=== PATIENT | female | born 1970 | race Caucasian/White ===

== ENCOUNTER 2016-09-02 05:53 | Day surgery (SDC) | payer OTHER ==
--- NOTE | 2016-08-27 10:58 | HISTORY AND PHYSICAL E ---
History and Physical NAME: YOUNG LEDESMA : 1970 AGE: 45Y ADMITTED: 09/02/2016 ROOM: The patient presented regarding colonoscopy. She is to be done in the OR. The patient presented for colonoscopy. Primary doctor is Dr. Plasencia. She is to be done in the OR with anesthesia standby. CHIEF COMPLAINT: Diverticulosis, abdominal pain. SOCIAL HISTORY: Smokes a pack a day, drinks rarely. PAST SURGICAL HISTORY: Tubal ligation. REVIEW OF SYSTEMS: CARDIAC: Hypertension, high cholesterol. ENDOCRINE: Negative. GASTROINTESTINAL: Diverticulitis, diverticulosis, lower abdominal pain, diarrhea. HEMATOLOGY/ONCOLOGY: Negative NEUROLOGIC AND PSYCH: Stress. FAMILY HISTORY: Father had cardiac disease. Mom has breast cancer. PHYSICAL EXAMINATION: GENERAL: A pleasant female in no acute distress, 46. VITAL SIGNS: Blood pressure 140/90, pulse 80, respirations 18, temperature is 98. HEAD, EYES, EARS, NOSE AND THROAT: Normal. NECK: Neck is supple. LUNGS: Clear. ABDOMEN: Soft. NEUROLOGIC: Exam negative. CONCLUSIONS: Colon screening. MEDICATIONS: 1. Trazodone. 2. Lovaza. 3. Lipitor. 4. valsartan. CONCLUSIONS: 1. Diverticulosis. 2. Diarrhea. 3. Abdominal pain. PLAN: Colonoscopy to be done in the OR. Admit 09/02/2016. DICTATING PHYSICIAN: COLTON JACINTO M.D. [id number] PHY#: [id number] ID: [id number] JOB#: [id number] ACCT: [id number] cc:COLTON JACINTO M.D., SWETANG M.D. >
[~2016-09-02 05:53] MED LIST: LACTATED RINGERS 1000 ML IV PRN; LIDOCAINE 0.5% INJ-PF (5 MG/ML) 50 ML SDV SUBCUT PRN
[2016-09-02] MEDS ORDERED: KETAMINE HCL INJ 500 MG/10 ML VIAL ONE (07:19)
[2016-09-02] MEDS ORDERED: MIDAZOLAM 2 MG/2 ML INJ ONE (07:19)
[2016-09-02] MEDS ORDERED: PROPOFOL INJ 200 MG/20 ML VIAL IV ONE (07:19)
[2016-09-02] MEDS ORDERED: GLUCAGON,HUMAN RECOMB 1 MG INJ ONE (08:04)
[2016-09-02] MEDS ORDERED: MORPHINE SULFATE 10 MG/ML INJ IV PRN (08:22)
[2016-09-02] MEDS ORDERED: OXYCODONE-ACETAMINOPHEN 5-325 MG TABLET PO PRN ×2 (08:22)
[2016-09-02] MEDS ORDERED: FENTANYL CITRATE INJ/PF 100 MCG/2 ML AMPUL IV PRN ×3 (08:22)
[2016-09-02] MEDS ORDERED: MEPERIDINE HCL/PF INJ 25 MG/1 ML DISP.SYRIN IV PRN (08:22)
[2016-09-02] MEDS ORDERED: PROMETHAZINE HCL INJ 25 MG/1 ML VIAL IV PRN ×3 (08:22→09:23)
[2016-09-02] MEDS ORDERED: DIPHENHYDRAMINE HCL 50 MG/ML VIAL IV PRN (08:22)
[2016-09-02] MEDS ORDERED: LIDOCAINE 2% VISCOUS SOLN 20 ML UDCUP PO PRN (09:01)
[2016-09-02] MEDS ORDERED: ACETAMINOPHEN 325 MG TABLET PO PRN (09:02)
[2016-09-02] MEDS ORDERED: SIMETHICONE 80 MG TAB.CHEW PO PRN (09:15)
[2016-09-02 09:35] LABS: ABSOLUTE EOSINOPHILS # (AUTO) 0.2 10^3/uL (0.0-0.6); ABSOLUTE LYMPHOCYTES (AUTO) 1.9 10^3/uL (0.5-4.7); ABSOLUTE MONOCYTES (AUTO) 0.5 10^3/uL (0.1-1.4); ABSOLUTE NEUT (AUTO) 5.2 10^3/uL (1.7-8.2); BASOPHILS % (AUTO) 0.6 % (0-2); EOSINOPHILS % (AUTO) 2.3 % (0-6); HEMATOCRIT 39.2 % (36.0-47.0); HEMOGLOBIN 13.1 g/dL (12.0-15.5); HGB HCT DIFFERENCE 0.1; LYMPHOCYTES % (AUTO) 24.1 % (13-45); MEAN CORPUSCULAR HEMOGLOBIN 31.4 pg (27.0-33.4); MEAN CORPUSCULAR HGB CONC 33.4 g/dL (32.0-36.0); MEAN CORPUSCULAR VOLUME 94 fl (80-97); MONOCYTES % (AUTO) 6.9 % (3-13); RED BLOOD COUNT 4.17 10^6/uL (3.72-5.28); SEGMENTED NEUTROPHILS % (AUTO) 66.1 % (42-78); WHITE BLOOD COUNT 7.8 10^3/uL (4.0-10.5)
[2016-09-02 11:04] VITALS: BP 146/98
--- NOTE | 2016-09-03 11:38 | DISCHARGE SUMMARY E ---
Discharge Summary NAME: YOUNG LEDESMA : 1970 AGE: 45Y ADMITTED: 09/02/2016 DISCHARGED: 09/02/2016 HISTORY: Patient is 45. Underwent colon screening. She does have recent diverticulitis/diverticulosis. FINDINGS: Colonoscopy showed severe diverticulosis, sigmoid descending colon: No polyps. External hemorrhoids. FINAL DIAGNOSIS: 1. DIVERTICULOSIS. 2. EXTERNAL HEMORRHOIDS. DISCHARGE PLAN: 1. Baseline CBC, C-reactive protein. 2. Patient to be discharged. Soft low residual diet. 3. Awaiting lab. 4. Awaiting followup office visit, 1 week. DICTATING PHYSICIAN: COLTON JACINTO M.D. [id number] Y#: [id number] ID: [id number] JOB#: [id number] ACCT: [id number] cc:[facility] COLTON JACINTO M.D., SWETANG M.D. >
--- NOTE | 2016-09-03 11:50 | OPERATIVE REPORT E ---
Operative Report NAME: YOUNG LEDESMA : 1970 AGE: 45Y DATE OF SURGERY: 09/02/2016 ROOM: PREOPERATIVE DIAGNOSIS: DIVERTICULOSIS. POSTOPERATIVE DIAGNOSES: 1. DIVERTICULOSIS SIGMOID DESCENDING COLON. 2. EXTERNAL HEMORRHOIDS. 3. NO POLYPS SEEN. OPERATION: Colonoscopy. SURGEON: COLTON JACINTO M.D. ANESTHESIA: Done in the OR with anesthesia standby TISSUE REMOVED OR ALTERED: None. PROCEDURE: Rectal exam; external hemorrhoids. Rectosigmoid; normal. Sigmoid; diverticulosis. Descending colon; diverticulosis. Transverse colon; normal. Ascending colon; normal. Cecum; normal. Moderate amount of liquid stool in the cecum. Scope withdrawn from cecum, ascending, transverse, descending, sigmoid all the way to the rectum. CONCLUSIONS: 1. Sigmoid descending colon diverticulosis. 2. External hemorrhoids. 3. No polyps. PLAN: Soft low-residue diet 3 days. Consider followup colonoscopy after 5 years. DICTATING PHYSICIAN: COLTON JACINTO M.D. [id number] PHY#: [id number] ID: [id number] JOB#: [id number] ACCT: [id number] cc:COLTON JACINTO M.D., SWETANG M.D. >
== END 2016-09-02 10:20 | disposition home or self-care (01) ==
LOC: OROUT 05:53
PROVIDERS: ATTEND Specialist
PROC: 0DJ08ZZ Inspection of Upper Intestinal Tract, Via Natural or Artificial Opening Endoscopic (ICD-10-PCS; principal; 2016-09-02 08:00)
DX: K57.30 Diverticulosis of large intestine without perforation or abscess without bleeding (principal); K64.4 Residual hemorrhoidal skin tags; I10 Essential (primary) hypertension; E78.00 Pure hypercholesterolemia, unspecified; F17.210 Nicotine dependence, cigarettes, uncomplicated; Z79.899 Other long term (current) drug therapy; Z88.5 Allergy status to narcotic agent; Z87.898 Personal history of other specified conditions
CPT/HCPCS: 45378; 36415; 85025; 81025; 86140; J2250; J1610; J3490; J2704; 810

== ENCOUNTER → 2016-09-22 | Outpatient (CLI) | payer OTHER | LOC: RAD 07:50 | PROVIDERS: ATTEND Physician Assistant | DX: R94.5 Abnormal results of liver function studies (principal) | CPT/HCPCS: 76705; 93976 ==

== ENCOUNTER → 2017-01-20 | Outpatient (CLI) | payer OTHER ==
--- NOTE | 2017-01-20 09:43 | RADIOLOGY REPORT (SQ) ---
EXAM DESCRIPTION: CT CHEST WITHOUT COMPLETED DATE/TIME: 01/20/2017 8:38 am REASON FOR STUDY: CHEST PAIN R07.9 CHEST PAIN, UNSPECIFIED COMPARISON: CT chest 10/24/2015 TECHNIQUE: CT scan performed of the chest without intravenous contrast. Images reviewed with lung, soft tissue and bone windows. Reconstructed coronal and sagittal MPR images reviewed. All images st ored on PACS. All CT scanners at this facility use dose modulation, iterative reconstruction, and/or weight based d osing when appropriate to reduce radiation dose to as low as reasonably achievable (ALARA). [facility]: Dose Right [facility]: CareDose [facility]: Dose Right [facility]: Teradose 4D [facility]: IPWireless RADIATION DOSE: Up-to-date CT equipment and radiation dose reduction techniques were employed. CTDIv ol: 7.4 mGy. DLP: 276 mGy-cm. mGy. LIMITATIONS: No technical limitations. FINDINGS: LUNGS AND PLEURA: No masses, infiltrates, pneumothorax. No pleural effusions, calcificati ons. HILAR AND MEDIASTINAL STRUCTURES: No identified masses or abnormal nodes. No obvious aneurysm. HEART AND VASCULAR STRUCTURES: No aneurysm. No pericardial effusion. UPPER ABDOMEN: No significant findings. Limited exam. THYROID AND OTHER SOFT TISSUES: No masses. No adenopathy. BONES: Benign bone islands in the T3, T8, T10, and T12 levels HARDWARE: None in the chest. OTHER: No other significant findings. IMPRESSION: NO SIGNIFICANT FINDING ON NON-CONTRASTED CHEST CT. TECHNICAL DOCUMENTATION: JOB ID: [id number] Quality ID # [id number]: Final reports with documentation of one or more dose reduction techniques (e.g., Au tomated exposure control, adjustment of the mA and/or kV according to patient size, use of iterative reconstruction technique) [address]- All Rights Reserved
== END ==
LOC: RAD 08:22
PROVIDERS: ATTEND Physician Assistant
DX: R07.9 Chest pain, unspecified (principal)
CPT/HCPCS: 71250

== ENCOUNTER 2019-05-22 11:58 | Observation (INO) | payer OTHER ==
[2019-05-22] MEDS ORDERED: ASPIRIN 81 MG TABLET, CHEWABLE PO ONE (13:00)
--- NOTE | 2019-05-22 13:04 | ER Document Report ---
ED Medical Screen (RME) - General Chief Complaint: Breathing Difficulty Stated Complaint: BREATHING DIFFICULTY Time Seen by Provider: 05/22/19 12:56 Primary Care Provider: ADRIA DUNN PA [Primary Care Provider] - Follow up as needed Mode of Arrival: Ambulatory Information source: Patient Notes: 48-year-old female presents to ED for complaint of severe chest burning started on just the right side and now it is bilateral. Her blood pressure is 218/104. She states she is so short of breath she cannot do anything. She states it started Wednesday after she did a kwaku event on Wednesday. She states she normally smokes a pack a day but has not been able to smoke due to the shortness of breath. Patient is alert and oriented respirations are regular. After patient gave a good cough lungs were clear. I have greeted and performed a rapid initial assessment of this patient. A comprehensive ED assessment and evaluation of the patient, analysis of test results and completion of medical decision making process will be conducted by an additional ED providers. TRAVEL OUTSIDE OF THE [place] IN LAST 30 DAYS: No - Related Data Allergies/Adverse Reactions: codeine Allergy (Severe, Verified 08/31/16 10:18) Hives ivp dye Allergy (Severe, Uncoded 08/31/16 10:18) redness, sob Past Medical History - Past Medical History Cardiac Medical History: Reports: Hx Coronary Artery Disease, Hx Hypertension - on meds Denies: Hx Heart Attack Pulmonary Medical History: Denies: Hx Asthma, Hx Bronchitis, Hx COPD, Hx Pneumonia Neurological Medical History: Denies: Hx Cerebrovascular Accident, Hx Seizures Musculoskeltal Medical History: Denies Hx Arthritis - Immunizations Hx Diphtheria, Pertussis, Tetanus Vaccination: Yes Physical Exam - Vital signs Vitals: Temp Pulse Resp BP Pulse Ox 98.1 F 71 18 214/106 H 96 05/22/19 12:45 05/22/19 12:45 05/22/19 12:45 05/22/19 12:45 05/22/19 12:45 Course - Vital Signs Vital signs: Temp Pulse Resp BP Pulse Ox 98.1 F 71 18 214/106 H 96 05/22/19 12:45 05/22/19 12:45 05/22/19 12:45 05/22/19 12:45 05/22/19 12:45 Doctor's Discharge - Discharge Referrals: ADRIA DUNN PA [Primary Care Provider] - Follow up as needed
[2019-05-22 14:07] LABS: ABSOLUTE BASOPHILS # (AUTO) 0.1 10^3/uL (0.0-0.2); ABSOLUTE EOSINOPHILS # (AUTO) 0.2 10^3/uL (0.0-0.6); ABSOLUTE LYMPHOCYTES (AUTO) 3.1 10^3/uL (0.5-4.7); ABSOLUTE MONOCYTES (AUTO) 0.7 10^3/uL (0.1-1.4); ABSOLUTE NEUT (AUTO) 5.4 10^3/uL (1.7-8.2); BASOPHILS % (AUTO) 1.2 % (0-2); EOSINOPHILS % (AUTO) 2.1 % (0-6); HEMATOCRIT 42.6 % (36.0-47.0); HEMOGLOBIN 14.8 g/dL (12.0-15.5); LYMPHOCYTES % (AUTO) 32.6 % (13-45); MEAN CORPUSCULAR HEMOGLOBIN 33.3 pg (27.0-33.4); MEAN CORPUSCULAR HGB CONC 34.8 g/dL (32.0-36.0); MEAN CORPUSCULAR VOLUME 96 fl (80-97); MONOCYTES % (AUTO) 7.3 % (3-13); PLATELET COUNT 194 10^3/uL (150-450); RED BLOOD COUNT 4.45 10^6/uL (3.72-5.28); RED CELL DISTRIBUTION WIDTH 12.5 % (11.5-14.0); SEGMENTED NEUTROPHILS % (AUTO) 56.8 % (42-78); TOTAL CELLS COUNTED % (AUTO) 100 %; WHITE BLOOD COUNT 9.5 10^3/uL (4.0-10.5)
[2019-05-22 14:31] LABS: ALBUMIN 4.5 g/dL (3.5-5.0); ALKALINE PHOSPHATASE 134 U/L (38-126); ANION GAP 10 (5-19); ASPARTATE AMINO TRANSFERASE 102 U/L (14-36); BILIRUBIN,DIRECT 0.1 mg/dL (0.0-0.4); BILIRUBIN,TOTAL 1.1 mg/dL (0.2-1.3); BLOOD UREA NITROGEN 11 mg/dL (7-20); CALCIUM 10.1 mg/dL (8.4-10.2); CARBON DIOXIDE 27 mmol/L (22-30); CHLORIDE 102 mmol/L (98-107); GLUCOSE 117 mg/dL (75-110); POTASSIUM 4.6 mmol/L (3.6-5.0); TOTAL PROTEIN 7.9 g/dL (6.3-8.2)
--- NOTE | 2019-05-22 14:43 | RADIOLOGY REPORT (SQ) ---
EXAM DESCRIPTION: CHEST 2 VIEWS COMPLETED DATE/TIME: 05/22/2019 2:14 pm REASON FOR STUDY: Chest burning blood pressure 218/104 manually COMPARISON: 05/22/2015 EXAM PARAMETERS: NUMBER OF VIEWS: two views TECHNIQUE: Digital Frontal and Lateral radiographic views of the chest acquired. RADIATION DOSE: NA LIMITATIONS: none FINDINGS: LUNGS AND PLEURA: No opacities, masses or pneumothorax. No pleural effusion. MEDIASTINUM AND HILAR STRUCTURES: No masses or contour abnormalities. HEART AND VASCULAR STRUCTURES: Heart normal size. No evidence for failure. BONES: No acute findings. HARDWARE: None in the chest. OTHER: No other significant finding. IMPRESSION: NO ACUTE RADIOGRAPHIC FINDING IN THE CHEST. TECHNICAL DOCUMENTATION: JOB ID: [id number] [email or web address]- All Rights Reserved Reading location - IP/workstation name: [email or web address]
[2019-05-22] MEDS ORDERED: NITROGLYCERIN 0.4 MG/TAB 25 TAB/BOTTLE SL ONE (15:55)
[2019-05-22] MEDS ORDERED: IPRATROPIUM/ALBUTEROL 0.5-2.5 MG/3 ML AMPUL NEB PRN (16:10)
[2019-05-22] MEDS ORDERED: METHYLPREDNISOLONE INJ 125 MG/2 ML SDV IV ONE (16:11)
[2019-05-22] MEDS ORDERED: CLONIDINE HCL 0.1 MG TABLET PO ONE (16:11)
--- NOTE | 2019-05-22 18:35 | ER Document Report ---
ED Cardiac - General Chief Complaint: Chest Pain Stated Complaint: BREATHING DIFFICULTY Time Seen by Provider: 05/22/19 12:56 Primary Care Provider: ADRIA DUNN PA [PHYSICIAN FINANCIAL CONSULTANT] - Follow up as needed Mode of Arrival: Ambulatory TRAVEL OUTSIDE OF THE [place] IN LAST 30 DAYS: No - Related Data Allergies/Adverse Reactions: codeine Allergy (Severe, Verified 08/31/16 10:18) Hives ivp dye Allergy (Severe, Uncoded 08/31/16 10:18) redness, sob Home Medications: Metoprolol, Losartan, Xanax prn Past Medical History - General Information source: Patient - Social History Smoking Status: Current Every Day Smoker Patient has suicidal ideation: No Patient has homicidal ideation: No - Past Medical History Cardiac Medical History: Reports: Hx Coronary Artery Disease, Hx Hypertension - on meds Denies: Hx Heart Attack Pulmonary Medical History: Reports: Hx COPD Denies: Hx Asthma, Hx Bronchitis, Hx Pneumonia Neurological Medical History: Denies: Hx Cerebrovascular Accident, Hx Seizures Musculoskeletal Medical History: Denies Hx Arthritis - Immunizations Hx Diphtheria, Pertussis, Tetanus Vaccination: Yes Physical Exam - Vital signs Vitals: Temp Pulse Resp BP Pulse Ox 98.1 F 71 18 214/106 H 96 05/22/19 12:45 05/22/19 12:45 05/22/19 12:45 05/22/19 12:45 05/22/19 12:45 Course - Vital Signs Vital signs: Temp Pulse Resp BP Pulse Ox 97.6 F 71 19 162/75 H 94 05/22/19 18:21 05/22/19 12:45 05/22/19 18:01 05/22/19 18:01 05/22/19 18:01 - Laboratory Result Diagrams: 05/22/19 13:56 05/22/19 13:56 Laboratory results interpreted by me: 05/22/19 05/22/19 13:56 13:56 Glucose 117 H AST 102 H Alkaline Phosphatase 134 H NT-Pro-B Natriuret Pep 206 H Discharge - Discharge Clinical Impression: Hypertension, Shortness of breath, COPD (chronic obstructive pulmonary disease) Condition: Fair Disposition: ADMITTED INPATIENT Admitting Provider: Plasencia Unit Admitted: IMCU Referrals: ADRIA DUNN PA [PHYSICIAN FINANCIAL CONSULTANT] - Follow up as needed
--- NOTE | 2019-05-22 18:39 | EKG REPORT ---
SEVERITY:- NORMAL ECG - SINUS RHYTHM : Confirmed by: Silverio Correa MD 22-May-2019 18:37:48
[2019-05-22] MEDS ORDERED: OXYCODONE-ACETAMINOPHEN 5-325 MG TABLET PO PRN (18:46)
[2019-05-22] MEDS ORDERED: NORMAL SALINE 1000 ML 1,000 ML IV PRN (18:46)
[2019-05-22] MEDS ORDERED: ACETAMINOPHEN 325 MG TABLET PO PRN (18:46)
[2019-05-22] MEDS ORDERED: HYDRALAZINE HCL 25 MG TABLET PO PRN (18:52)
--- NOTE | 2019-05-22 19:07 | RADIOLOGY REPORT (SQ) ---
EXAM DESCRIPTION: CT CHEST WITHOUT COMPLETED DATE/TIME: 05/22/2019 6:46 pm REASON FOR STUDY: back and chest pain short of breath COMPARISON: CT of the chest without contrast from 01/20/2017 and PA and lateral views of the chest fro m 05/22/2019. TECHNIQUE: CT scan performed of the chest without intravenous contrast. Images reviewed with lung, soft tissue and bone windows. Reconstructed coronal and sagittal MPR images reviewed. All images st ored on PACS. All CT scanners at this facility use dose modulation, iterative reconstruction, and/or weight based d osing when appropriate to reduce radiation dose to as low as reasonably achievable (ALARA). [facility]: Dose Right [facility]: CareDose [facility]: Dose Right [facility]: Teradose 4D [facility]: [employer] RADIATION DOSE: CT Rad equipment meets quality standard of care and radiation dose reduction techniq ues were employed. CTDIvol: 6.8 mGy. DLP: 251 mGy-cm. LIMITATIONS: No technical limitations. FINDINGS: LUNGS AND PLEURA: The trachea main bronchi are patent. There is no consolidation, ground- glass opacification, pleural effusion, nodule or mass. HILAR AND MEDIASTINAL STRUCTURES: No mediastinal or hilar adenopathy. HEART AND VASCULAR STRUCTURES: Evaluation is limited due to the absence of intravenous contrast. The re is no thoracic aortic aneurysm or evidence of an intramural hematoma. There is no cardiomegaly or pericardial effusion UPPER ABDOMEN: No acute findings. THYROID AND OTHER SOFT TISSUES: No masses or adenopathy. BONES: Stable sclerotic lesions within the T3, T5, T6, T7, T8, T10 and T12 vertebral bodies. There i s no acute fracture. HARDWARE: None in the chest. OTHER: No other findings. IMPRESSION: No acute cardiopulmonary process. TECHNICAL DOCUMENTATION: JOB ID: [id number] Quality ID # [id number]: Final reports with documentation of one or more dose reduction techniques (e.g., Au tomated exposure control, adjustment of the mA and/or kV according to patient size, use of iterative reconstruction technique) 2010 [employer]- All Rights Reserved Reading location - IP/workstation name: [email or web address]
[2019-05-22] MEDS: IPRATROPIUM/ALBUTEROL 0.5-2.5 MG/3 ML AMPUL NEB SCH (20:40)
--- NOTE | 2019-05-22 21:04 | Progress Note ---
Provider Note Provider Note: pt seen in er and d/w pt and family
[2019-05-22 21:22] LABS: ANION GAP 15 (5-19); BLOOD UREA NITROGEN 12 mg/dL (7-20); CALCIUM 10.2 mg/dL (8.4-10.2); CARBON DIOXIDE 26 mmol/L (22-30); CHLORIDE 97 mmol/L (98-107); CREATINE KINASE 108 U/L (30-135); GLUCOSE 190 mg/dL (75-110); POTASSIUM 3.8 mmol/L (3.6-5.0)
[2019-05-22 21:27] LABS: CREATINE KINASE MB 1.63 ng/mL (<4.55)
[2019-05-22 21:28] LABS: TROPONIN I < 0.012 ng/mL
[2019-05-22] MEDS: METOPROLOL TARTRATE 50 MG TABLET PO SCH ×2 (21:30→21:32)
[2019-05-22] MEDS: PANTOPRAZOLE SODIUM 40 MG TABLET.DR PO SCH (21:30)
[2019-05-22] MEDS: LOSARTAN POTASSIUM 50 MG TABLET PO SCH (21:31)
[2019-05-22] MEDS ORDERED: METOPROLOL TARTRATE 50 MG TABLET PO SCH (22:00)
[2019-05-22] MEDS ORDERED: LOSARTAN POTASSIUM 50 MG TABLET PO SCH (22:00)
--- NOTE | 2019-05-22 23:25 | EKG REPORT ---
SEVERITY:- BORDERLINE ECG - SINUS RHYTHM NONSPECIFIC ST-T CHANGES V2. : Confirmed by: Silverio Correa MD 22-May-2019 23:25:00
[2019-05-22] MEDS ORDERED: INFLUENZA QUAD (6MOS+) 2019-20 VAC 0.5 ML SYR IM ONE (23:32)
[2019-05-23] MEDS ORDERED: METHYLPREDNISOLONE INJ 40 MG/1 ML SDV IV SCH (02:00)
[2019-05-23 02:18] LABS: CREATINE KINASE MB 1.22 ng/mL (<4.55); TROPONIN I < 0.012 ng/mL
[2019-05-23] MEDS: PANTOPRAZOLE SODIUM 40 MG TABLET.DR PO SCH (05:18)
[2019-05-23] MEDS ORDERED: PANTOPRAZOLE SODIUM 40 MG TABLET.DR PO SCH (06:00)
[2019-05-23 08:14] LABS: ABSOLUTE MONOCYTES (AUTO) 0.1 10^3/uL (0.1-1.4); ABSOLUTE NEUT (AUTO) 11.3 10^3/uL (1.7-8.2); BASOPHILS % (AUTO) 0.2 % (0-2); HEMATOCRIT 44.4 % (36.0-47.0); HEMOGLOBIN 15.1 g/dL (12.0-15.5); LYMPHOCYTES % (AUTO) 8.3 % (13-45); MEAN CORPUSCULAR HEMOGLOBIN 32.9 pg (27.0-33.4); MEAN CORPUSCULAR VOLUME 97 fl (80-97); MONOCYTES % (AUTO) 0.9 % (3-13); PLATELET COUNT 212 10^3/uL (150-450); RED CELL DISTRIBUTION WIDTH 12.5 % (11.5-14.0); SEGMENTED NEUTROPHILS % (AUTO) 90.6 % (42-78); TOTAL CELLS COUNTED % (AUTO) 100 %; WHITE BLOOD COUNT 12.5 10^3/uL (4.0-10.5)
[2019-05-23] MEDS ORDERED: AZITHROMYCIN 250 MG TABLET PO ONE (08:30)
[2019-05-23] MEDS: IPRATROPIUM/ALBUTEROL 0.5-2.5 MG/3 ML AMPUL NEB SCH (08:31)
--- NOTE | 2019-05-23 08:54 | PDOC H&P ---
History of Present Illness Admission Date/PCP: 05/22/19 18:47 SHADI TSANG MD Patient complains of: Shortness of the breath and burning sensation History of Present Illness: YOUNG LEDESMA is a 48 year old female This is a 48-year-old female's with a history of the chronic smoker COPD anxiety disorder hypertensions chronic back pain hyperlipidemia came to the emergency department for the last 24 hours complaining of her shortness of the breath cough congestions and a burning sensation in the chest In the emergency department patient's initial blood pressure was 220 and the patient was given clonidine and the patient's blood pressure is coming down' Also received the swelling Medrol and nebulizer treatment And aspirin in the emergency departments When I saw the patient is alert awake oriented x4 denied any chest pain denied any breathing problems except burning sensation in the chest Still have a chronic back problems currently see the pain management Since CT of the chest was negative for any acute finding patient EKG and cardiac enzymes initial x2 is negative Patient is very anxious to go home but with enough risk factor decided to admit to rule out any in the leg coronary disease and other etiologies Is chronic smoker's with some mild COPD acute exacerbation start on steroid and nebulizer treatment and patients feel already better Discussed with the patient and the family on the bedside regarding the patient's current conditions Since seen by the cardiology Dr. Moore at this year and stress test and echocardiogram And according to the patient should be okay Past Medical History Cardiac Medical History: Reports: Hypertension - on meds Denies: Myocardial Infarction Pulmonary Medical History: Reports: Chronic Obstructive Pulmonary Disease (COPD) Denies: Asthma, Bronchitis, Pneumonia Neurological Medical History: Denies: Seizures Musculoskeltal Medical History: Denies: Arthritis Psychiatric Medical History: Reports: General Anxiety Disorder Hematology: Denies: Anemia Social History Information Source: Patient Smoking Status: Current Every Day Smoker Cigarettes Packs Per Day: 1 Electronic Cigarette use?: No Last Time Smoked: 05/20/19 Frequency of Alcohol Use: Occasional Hx Recreational Drug Use: No Drugs: None Hx Prescription Drug Abuse: No - Advance Directive Resuscitation Status: Full Code Family History Family History: None Parental Family History Reviewed: Yes Children Family History Reviewed: Yes Sibling(s) Family History Reviewed.: Yes Medication/Allergy Home Medications: Alprazolam [Xanax 0.5 mg Tablet] 0.25 mg PO DAILYP PRN 05/22/19 Atorvastatin Calcium [Lipitor 10 mg Tablet] 10 mg PO DAILY 05/22/19 Benzonatate [Tessalon Perles 100 mg Capsule] 100 mg PO Q8HP PRN 05/22/19 Cetirizine HCl [Zyrtec] 10 mg PO DAILY 05/22/19 Cyclobenzaprine HCl [Flexeril 10 mg Tablet] 10 mg PO TIDP PRN 05/22/19 Losartan Potassium [Cozaar 50 mg Tablet] 50 mg PO Q12 05/22/19 Metoprolol Tartrate 75 mg PO Q12 05/22/19 Multivitamin [Daily Multiple Vitamin] 1 each PO DAILY 05/22/19 Azithromycin [Zithromax 250 mg Tablet] 250 mg PO ASDIR PRN #4 tablet 05/23/19 Clonidine HCl [Catapres 0.1 mg Tablet] 0.1 mg PO DAILY #60 tablet 05/23/19 Fluticasone/Salmeterol [Advair 250-50 Diskus 14 Dose/Diskus] 1 inh IH Q12H #1 inhaler 05/23/19 Pantoprazole Sodium [Protonix [address] Tablet] 40 mg PO DAILY #30 tablet.dr 04/01 Prednisone [Deltasone 20 mg Tablet] 20 mg PO DAILY #5 tablet 05/23/19 Allergies/Adverse Reactions: codeine Allergy (Severe, Verified 08/31/16 10:18) Hives ivp dye Allergy (Severe, Uncoded 08/31/16 10:18) redness, sob Review of Systems Constitutional: ABSENT: chills, fever(s), headache(s), weight gain, weight loss Eyes: ABSENT: visual disturbances Ears: ABSENT: hearing changes Cardiovascular: ABSENT: chest pain, dyspnea on exertion, edema, orthropnea, palpitations Respiratory: ABSENT: cough, hemoptysis Gastrointestinal: ABSENT: abdominal pain, constipation, diarrhea, hematemesis, hematochezia, nausea, vomiting Genitourinary: ABSENT: dysuria, hematuria Musculoskeletal: ABSENT: joint swelling Integumentary: ABSENT: rash, wounds Neurological: ABSENT: abnormal gait, abnormal speech, confusion, dizziness, focal weakness, syncope Psychiatric: ABSENT: anxiety, depression, homidical ideation, suicidal ideation Endocrine: ABSENT: cold intolerance, heat intolerance, menstrual abnormalities, polydipsia, polyuria Hematologic/Lymphatic: ABSENT: easy bleeding, easy bruising, lymphadenopathy Physical Exam Vital Signs: Temp Pulse Resp BP Pulse Ox 98.2 F 76 16 141/79 H 93 05/23/19 04:00 05/23/19 04:00 05/23/19 04:00 05/23/19 04:00 05/23/19 04:00 Intake & Output 05/22/19 05/23/19 05/24/19 06:59 06:59 06:59 Intake Total 240 Balance 240 Weight 70.7 kg General appearance: PRESENT: no acute distress, well-developed, well-nourished Head exam: PRESENT: atraumatic, normocephalic Eye exam: PRESENT: conjunctiva pink, EOMI, PERRLA. ABSENT: scleral icterus Ear exam: PRESENT: normal external ear exam Mouth exam: PRESENT: moist, tongue midline Neck exam: PRESENT: full ROM. ABSENT: carotid bruit, JVD, lymphadenopathy, thyromegaly Respiratory exam: PRESENT: clear to auscultation maritza Cardiovascular exam: PRESENT: RRR. ABSENT: diastolic murmur, rubs, systolic murmur Pulses: PRESENT: normal dorsalis pedis pul, +2 pedal pulses bilateral Vascular exam: PRESENT: normal capillary refill GI/Abdominal exam: PRESENT: normal bowel sounds, soft. ABSENT: distended, guarding, mass, organolmegaly, rebound, tenderness Rectal exam: PRESENT: deferred Musculoskeletal exam: PRESENT: ambulatory Neurological exam: PRESENT: alert, awake, oriented to person, oriented to place, oriented to time, oriented to situation, CN II-XII grossly intact. ABSENT: motor sensory deficit Psychiatric exam: PRESENT: appropriate affect, normal mood. ABSENT: homicidal ideation, suicidal ideation Skin exam: PRESENT: dry, intact, warm. ABSENT: cyanosis, rash Results Laboratory Results: 05/23/19 07:47 05/22/19 20:52 05/22/19 05/22/19 05/22/19 13:56 13:56 20:52 WBC 9.5 RBC 4.45 Hgb 14.8 Hct 42.6 MCV 96 MCH 33.3 MCHC 34.8 RDW 12.5 Plt Count 194 Seg Neutrophils % 56.8 Sodium 138.8 137.9 Potassium 4.6 3.8 Chloride 102 97 L Carbon Dioxide 27 26 Anion Gap 10 15 BUN 11 12 Creatinine 0.54 0.56 Est GFR ( Amer) > 60 > 60 Glucose 117 H 190 H Calcium 10.1 10.2 Magnesium 2.1 Total Bilirubin 1.1 AST 102 H Alkaline Phosphatase 134 H Total Protein 7.9 Albumin 4.5 05/23/19 07:47 WBC 12.5 H RBC 4.60 Hgb 15.1 Hct 44.4 MCV 97 MCH 32.9 MCHC 34.0 RDW 12.5 Plt Count 212 Seg Neutrophils % 90.6 H Sodium Potassium Chloride Carbon Dioxide Anion Gap BUN Creatinine Est GFR ( Amer) Glucose Calcium Magnesium Total Bilirubin AST Alkaline Phosphatase Total Protein Albumin 05/22/19 05/22/19 05/22/19 13:56 13:56 20:12 Creatine Kinase CK-MB (CK-2) 1.63 Troponin I < 0.012 < 0.012 NT-Pro-B Natriuret Pep 206 H 05/22/19 05/23/19 05/23/19 20:52 01:48 01:48 Creatine Kinase 108 86 CK-MB (CK-2) 1.22 Troponin I < 0.012 NT-Pro-B Natriuret Pep Impressions: Chest X-Ray 05/22/19 13:00 IMPRESSION: NO ACUTE RADIOGRAPHIC FINDING IN THE CHEST. Chest CT 05/22/19 18:32 IMPRESSION: No acute cardiopulmonary process. Assessment & Plan - Diagnosis (1) Hypertension Qualifiers: Hypertension type: essential hypertension Qualified Code(s): I10 - Essential (primary) hypertension Is this a current diagnosis for this admission?: Yes Plan: Continues to current medications I think questions clonidine works much better due to the lot of anxiety issues we will start the PRN clonidine and then readjust the blood pressure medications (2) COPD with acute exacerbation Is this a current diagnosis for this admission?: Yes Plan: Start the patient on nebulizer treatments steroids (3) Anxiety disorder Qualifiers: Anxiety disorder type: generalized anxiety disorder Qualified Code(s): F41.1 - Generalized anxiety disorder Is this a current diagnosis for this admission?: Yes Plan: Continues to PRN Xanax (4) Shortness of breath Is this a current diagnosis for this admission?: Yes Plan: Patient CT of the chest is negative for any acute findings most likely underlying COPD will rule out acute coronary syndromes - Time Time Spent: 30 to 50 Minutes Medications reviewed and adjusted accordingly: Yes Anticipated discharge: Home Within: within 24 hours - Inpatient Certification Based on my medical assessment, after consideration of the patient's comorbidities, presenting symptoms, or acuity I expect that the services needed warrant INPATIENT care.: Yes I certify that my determination is in accordance with my understanding of Medicare's requirements for reasonable and necessary INPATIENT services [42 CFR 412.3e].: Yes Medical Necessity: Significant Comorbidiites Make Outpatient Treatment Too Risky, Need Close Monitoring Due to Risk of Patient Decompensation Post Hospital Care: D/C Piano [employer] Documentation - Plan Summary Plan Summary: Admit the patient in IMCU for further evaluation see MD orders
[2019-05-23 08:56] LABS: CREATINE KINASE MB 1.35 ng/mL (<4.55)
--- NOTE | 2019-05-23 08:57 | PDOC DISCHARGE SUMMARY ---
Impression - Admit/DC Date/PCP Admission Date/Primary Care Provider: 05/22/19 18:47 SHADI TSANG MD Discharge Date: 05/23/19 - Discharge Diagnosis (1) Hypertension Is this a current diagnosis for this admission?: Yes (2) COPD with acute exacerbation Is this a current diagnosis for this admission?: Yes (3) Anxiety disorder Is this a current diagnosis for this admission?: Yes (4) Shortness of breath Is this a current diagnosis for this admission?: Yes - Additional Information Resuscitation Status: Full Code Discharge Diet: As Tolerated Discharge Activity: Activity As Tolerated Referrals: KIKE TRUJILLO MD [ACTIVE PROVISIONAL STAFF] - 05/31/19 9:15 am ADRIA DUNN PA [PHYSICIAN FIELD MERCHANDISER] - 06/12/19 8:45 am () Prescriptions: Fluticasone/Salmeterol [Advair 250-50 Diskus 14 Dose/Diskus] 1 inh IH Q12H #1 inhaler Clonidine HCl [Catapres 0.1 mg Tablet] 0.1 mg PO DAILY #60 tablet Prednisone [Deltasone 20 mg Tablet] 20 mg PO DAILY #5 tablet Pantoprazole Sodium [Protonix [address] Tablet] 40 mg PO DAILY #30 tablet.dr Azithromycin [Zithromax 250 mg Tablet] 250 mg PO ASDIR PRN #4 tablet PRN Reason: Home Medications: Alprazolam [Xanax 0.5 mg Tablet] 0.25 mg PO DAILYP PRN 05/22/19 Atorvastatin Calcium [Lipitor 10 mg Tablet] 10 mg PO DAILY 05/22/19 Benzonatate [Tessalon Perles 100 mg Capsule] 100 mg PO Q8HP PRN 05/22/19 Cetirizine HCl [Zyrtec] 10 mg PO DAILY 05/22/19 Cyclobenzaprine HCl [Flexeril 10 mg Tablet] 10 mg PO TIDP PRN 05/22/19 Losartan Potassium [Cozaar 50 mg Tablet] 50 mg PO Q12 05/22/19 Metoprolol Tartrate 75 mg PO Q12 05/22/19 Multivitamin [Daily Multiple Vitamin] 1 each PO DAILY 05/22/19 Azithromycin [Zithromax 250 mg Tablet] 250 mg PO ASDIR PRN #4 tablet 05/23/19 Clonidine HCl [Catapres 0.1 mg Tablet] 0.1 mg PO DAILY #60 tablet 05/23/19 Fluticasone/Salmeterol [Advair 250-50 Diskus 14 Dose/Diskus] 1 inh IH Q12H #1 inhaler 05/23/19 Pantoprazole Sodium [Protonix [address] Tablet] 40 mg PO DAILY #30 tablet.dr 05/23/19 Prednisone [Deltasone 20 mg Tablet] 20 mg PO DAILY #5 tablet 05/23/19 History of Present Illiness History of Present Illness: YOUNG LEDESMA is a 48 year old female This is a 48-year-old female's with a history of the chronic smoker COPD anxiety disorder hypertensions chronic back pain hyperlipidemia came to the emergency department for the last 24 hours complaining of her shortness of the breath cough congestions and a burning sensation in the chest In the emergency department patient's initial blood pressure was 220 and the patient was given clonidine and the patient's blood pressure is coming down' Also received the swelling Medrol and nebulizer treatment And aspirin in the emergency departments When I saw the patient is alert awake oriented x4 denied any chest pain denied any breathing problems except burning sensation in the chest Still have a chronic back problems currently see the pain management Since CT of the chest was negative for any acute finding patient EKG and cardiac enzymes initial x2 is negative Patient is very anxious to go home but with enough risk factor decided to admit to rule out any in the leg coronary disease and other etiologies Is chronic smoker's with some mild COPD acute exacerbation start on steroid and nebulizer treatment and patients feel already better Discussed with the patient and the family on the bedside regarding the patient's current conditions Since seen by the cardiology Dr. Moore at this year and stress test and echocardiogram And according to the patient should be okay Hospital Course Hospital Course: This is a 48-year-old female's with the chronic medical problem as above presented emergency department with a complaint of shortness of the breath and the burning sensations patient initial CT of the chest cardiac enzyme EKG all normal Put on Protonix duo nebs and nebulizer treatment and response very well Patient is denied any more symptoms no chest pain no short of breath no burning sensations patient is walking the hallway without any problems p.o. intake is good Patient have a stress test and echocardiogram done by the Dr. Long this year and according the patient was all normal patients do not want to see a retail bakery manager here in the hospital have appointment to see Dr. Trujillo as outpatients in [facility] Patient is otherwise doing well very anxious and eager to go home because of the her sick mother and did not want to stay in the hospital Is only with some dry cough from COPD we will start the patient on a Z-Harpal prednisone and nebulizer treatment as needed and Advair and follow in office 1 week Cussed with the patient any chest pain any short of breath but come to the hospitals Follow-up with the cardiology outpatient and follow in office 1 week to further evaluate but did a pulmonary function test Discussed with the patient about smoking counseling Physical Exam Vital Signs: Temp Pulse Resp BP Pulse Ox 98.2 F 76 16 141/79 H 93 05/23/19 04:00 05/23/19 04:00 05/23/19 04:00 05/23/19 04:00 05/23/19 04:00 Intake & Output 05/22/19 05/23/19 05/24/19 06:59 06:59 06:59 Intake Total 240 Balance 240 Weight 70.7 kg General appearance: PRESENT: no acute distress, well-developed, well-nourished Head exam: PRESENT: atraumatic, normocephalic Eye exam: PRESENT: conjunctiva pink, EOMI, PERRLA. ABSENT: scleral icterus Ear exam: PRESENT: normal external ear exam Mouth exam: PRESENT: moist, tongue midline Neck exam: ABSENT: carotid bruit, JVD, lymphadenopathy, thyromegaly Respiratory exam: PRESENT: clear to auscultation maritza. ABSENT: rales, rhonchi, wheezes Cardiovascular exam: PRESENT: RRR. ABSENT: diastolic murmur, rubs, systolic murmur Pulses: PRESENT: normal dorsalis pedis pul Vascular exam: PRESENT: normal capillary refill GI/Abdominal exam: PRESENT: normal bowel sounds, soft. ABSENT: distended, guarding, mass, organolmegaly, rebound, tenderness Rectal exam: PRESENT: deferred Extremities exam: PRESENT: full ROM. ABSENT: calf tenderness, clubbing, pedal edema Neurological exam: PRESENT: alert, awake, oriented to person, oriented to place, oriented to time, oriented to situation, CN II-XII grossly intact. ABSENT: motor sensory deficit Psychiatric exam: PRESENT: appropriate affect, normal mood. ABSENT: homicidal ideation, suicidal ideation Skin exam: PRESENT: dry, intact, warm. ABSENT: cyanosis, rash Results Laboratory Results: WBC 12.5 10^3/uL (4.0-10.5) H 05/23/19 07:47 RBC 4.60 10^6/uL (3.72-5.28) 05/23/19 07:47 Hgb 15.1 g/dL (12.0-15.5) 05/23/19 07:47 Hct 44.4 % (36.0-47.0) 05/23/19 07:47 MCV 97 fl (80-97) 05/23/19 07:47 MCH 32.9 pg (27.0-33.4) 05/23/19 07:47 MCHC 34.0 g/dL (32.0-36.0) 05/23/19 07:47 RDW 12.5 % (11.5-14.0) 05/23/19 07:47 Plt Count 212 10^3/uL (150-450) 05/23/19 07:47 Lymph % (Auto) 8.3 % (13-45) L 05/23/19 07:47 [place] % (Auto) 0.9 % (3-13) L 05/23/19 07:47 Eos % (Auto) 0.0 % (0-6) 05/23/19 07:47 Baso % (Auto) 0.2 % (0-2) 05/23/19 07:47 Absolute Neuts (auto) 11.3 10^3/uL (1.7-8.2) H 05/23/19 07:47 Absolute Lymphs (auto) 1.0 10^3/uL (0.5-4.7) 05/23/19 07:47 Absolute Monos (auto) 0.1 10^3/uL (0.1-1.4) 05/23/19 07:47 Absolute Eos (auto) 0.0 10^3/uL (0.0-0.6) 05/23/19 07:47 Absolute Basos (auto) 0.0 10^3/uL (0.0-0.2) 05/23/19 07:47 Seg Neutrophils % 90.6 % (42-78) H 05/23/19 07:47 Sodium 137.9 mmol/L (137-145) 05/22/19 20:52 Potassium 3.8 mmol/L (3.6-5.0) 05/22/19 20:52 Chloride 97 mmol/L (98-107) L 05/22/19 20:52 Carbon Dioxide 26 mmol/L (22-30) 05/22/19 20:52 Anion Gap 15 (5-19) 05/22/19 20:52 BUN 12 mg/dL (7-20) 05/22/19 20:52 Creatinine 0.56 mg/dL (0.52-1.25) 05/22/19 20:52 Est GFR ( Amer) > 60 (>60) 05/22/19 20:52 Est GFR (MDRD) Non-Af > 60 (>60) 05/22/19 20:52 Glucose 190 mg/dL (75-110) H 05/22/19 20:52 Calcium 10.2 mg/dL (8.4-10.2) 05/22/19 20:52 Magnesium 2.3 mg/dL (1.6-2.3) 05/23/19 07:47 Total Bilirubin 1.1 mg/dL (0.2-1.3) 05/22/19 13:56 Direct Bilirubin 0.1 mg/dL (0.0-0.4) 05/22/19 13:56 Neonat Total Bilirubin Not Reportable 05/22/19 13:56 Neonat Direct Bilirubin Not Reportable 05/22/19 13:56 Neonat Indirect Bili Not Reportable 05/22/19 13:56 AST 102 U/L (14-36) H 05/22/19 13:56 ALT 131 U/L (<35) 05/22/19 13:56 Alkaline Phosphatase 134 U/L (38-126) H 05/22/19 13:56 Creatine Kinase 85 U/L (30-135) 05/23/19 07:47 CK-MB (CK-2) 1.22 ng/mL (<4.55) 05/23/19 01:48 Troponin I < 0.012 ng/mL 05/23/19 01:48 NT-Pro-B Natriuret Pep 206 pg/mL (<125) H 05/22/19 13:56 Total Protein 7.9 g/dL (6.3-8.2) 05/22/19 13:56 Albumin 4.5 g/dL (3.5-5.0) 05/22/19 13:56 05/22/19 05/22/19 05/22/19 13:56 13:56 20:12 CK-MB (CK-2) 1.63 Troponin I < 0.012 < 0.012 NT-Pro-B Natriuret Pep 206 H 05/23/19 01:48 CK-MB (CK-2) 1.22 Troponin I < 0.012 NT-Pro-B Natriuret Pep Impressions: Chest X-Ray 05/22/19 13:00 IMPRESSION: NO ACUTE RADIOGRAPHIC FINDING IN THE CHEST. Chest CT 05/22/19 18:32 IMPRESSION: No acute cardiopulmonary process. Plan Time Spent: Greater than 30 Minutes - Follow in office in 1 week we will do the PFT follow-up with the cardiology Stroke Is this a Stroke Patient?: No Acute Heart Failure - Is this a Heart Failure Patient?: No
[2019-05-23 09:00] LABS: TROPONIN I < 0.012 ng/mL
[2019-05-23] MEDS ORDERED: PREDNISONE 20 MG TABLET PO SCH (10:00)
[2019-05-23] MEDS ORDERED: ENOXAPARIN SODIUM INJ 40 MG/0.4 ML DISP.SYRIN SUBCUT SCH (10:00)
[2019-05-23] MEDS: METOPROLOL TARTRATE 50 MG TABLET PO SCH (10:05)
[2019-05-23] MEDS: LOSARTAN POTASSIUM 50 MG TABLET PO SCH (10:05)
[2019-05-23 10:30] VITALS: BP 141/79
== END 2019-05-23 11:17 | disposition home or self-care (01) ==
LOC: ER 11:58 → EH 18:47 → INTOOBSV 18:47 → 3S 22:05
PROVIDERS: ADMIT Family Medicine; ATTEND Family Medicine
DX: J44.1 Chronic obstructive pulmonary disease with (acute) exacerbation (principal); I10 Essential (primary) hypertension; F41.1 Generalized anxiety disorder; E78.5 Hyperlipidemia, unspecified; G89.29 Other chronic pain; M54.9 Dorsalgia, unspecified; F17.210 Nicotine dependence, cigarettes, uncomplicated; I25.10 Atherosclerotic heart disease of native coronary artery without angina pectoris; Z79.899 Other long term (current) drug therapy; Z79.51 Long term (current) use of inhaled steroids; Z79.52 Long term (current) use of systemic steroids
CPT/HCPCS: 93005 ×2; 94640 ×2; 99285; 96374; 36415 ×2; 87040; 82553 ×2; 82550 ×2; 83735 ×2; 85025 ×2; 87077; 80053; 84484 ×2; 87186; 87150 ×26; 83880; 71046; 71250; 93010; G0378 ×3; J2920; J2930; J7512; J7620; J3490 ×2

== ENCOUNTER → 2020-03-05 | Outpatient (CLI) | payer OTHER ==
--- NOTE | 2020-03-05 12:59 | RADIOLOGY REPORT (SQ) ---
EXAM DESCRIPTION: CHEST PA/LATERAL IMAGES COMPLETED DATE/TIME: 03/05/2020 12:37 pm REASON FOR STUDY: COUGH COMPARISON: 05/22/2019 EXAM PARAMETERS: NUMBER OF VIEWS: two views TECHNIQUE: Digital Frontal and Lateral radiographic views of the chest acquired. RADIATION DOSE: NA LIMITATIONS: none FINDINGS: LUNGS AND PLEURA: No opacities, masses or pneumothorax. No pleural effusion. MEDIASTINUM AND HILAR STRUCTURES: No masses or contour abnormalities. HEART AND VASCULAR STRUCTURES: Heart normal size. No evidence for failure. BONES: No acute findings. HARDWARE: None in the chest. OTHER: No other significant finding. IMPRESSION: NO SIGNIFICANT RADIOGRAPHIC FINDING IN THE CHEST. TECHNICAL DOCUMENTATION: JOB ID: [id number] [employer]- All Rights Reserved Reading location - IP/workstation name: [email or web address]
== END ==
LOC: OD 12:27
PROVIDERS: ATTEND Physician Assistant
DX: R05 Cough (principal)
CPT/HCPCS: 71046